=== PATIENT | female | born 1970 | race Caucasian/White ===

== ENCOUNTER 2017-04-08 19:19 | Emergency (ER) | payer BC ==
--- NOTE | ~2017-04-08 | ER ---
PATIENT'S NAME: [facility] AGE: 46 Y [address] ROOM: [place] [id number] LOCATION: [facility] ADMIT DATE: 04/08/2017 ER/Outpatient Report DISCHARGE DATE: 04/08/2017 FAMILY PHYSICIAN: Sherita Agudelo PA-C ATTENDING PHYSICIAN: Althea Cohen HISTORY OF PRESENT ILLNESS: A 46-year-old female, who presents today with 3 days of off and on left lower quadrant pain/left pelvic pain. She reports it was stronger today approximately 10 hours ago. It got stronger. She has not taken anything for pain though. She also reports that she has had her on and off periods pretty much every day since mid February. She says she feels mildly dizzy today. She used 6 pads yesterday. She thinks she used may be a pad every 3-4 hours. No nausea or vomiting. No diarrhea. No other complaints at this time. The patient reports that she has had sort of pelvic pain in the past. She has had an ultrasound in the past too, which she says showed "inflammation," but she has not followed up with them recently. Her last pelvic exam was a year ago and she says that it was otherwise pretty normal. She does not take anything for her periods. PAST MEDICAL HISTORY: Includes right foot surgery for bunion. Last menstrual period, ongoing for the last month and a half. She has no history of ovarian cyst though she states. SOCIAL HISTORY: She does not smoke, drink, or use any drugs. MEDICATIONS: None. ALLERGIES: NONE. REVIEW OF SYSTEMS: Reviewed by me and negative with the exception of those discussed in HPI. PHYSICAL EXAMINATION: VITAL SIGNS: The patient is 5 feet 3 inches, she weighs 62.1 kilos, blood pressure of 121/58, heart rate 67, respiratory rate 16, temperature is 97, saturations are 97% on room air. GENERAL: The patient is female. She is very pleasant. She is speaking in full sentences. She is nontoxic appearing. HEENT: Pupils are equal and reactive to light. She has no pale conjunctivae. HEART: Heart rate is regular rate and rhythm. PATIENT'S NAME: [facility] AGE: 46 Y [address] ROOM: [place], [place] [address] LOCATION: [facility] ADMIT DATE: 04/08/2017 ER/Outpatient Report DISCHARGE DATE: 04/08/2017 FAMILY PHYSICIAN: Sherita Agudelo PA-C ATTENDING PHYSICIAN: Althea Cohen LUNGS: Her lung sounds are clear. ABDOMEN: She is tender in the left lower quadrant, but no rebound or guarding. She has no right lower quadrant tenderness or right upper quadrant tenderness. No left upper quadrant tenderness, no suprapubic tenderness. No CVA tenderness bilaterally. PELVIC: Pelvic exam was done. Bimanual exam was done. I do not feel any masses in the adnexa. No cervical motion tenderness. Scant amount of blood in the vaginal vault, but the cervix is not open. No mass is noted. SKIN: Warm, dry, and intact. EXTREMITIES: She is nontender. She has no calf tenderness. She moves all extremities. She has no edema. EMERGENCY ROOM COURSE: We checked some lab work, which showed sodium 141, potassium 3.8, chloride 108, CO2 29, anion gap is 7.8, glucose 89, BUN 10, creatinine 0.7, bilirubin is 0.2, alkaline phosphatase 71, AST 23, ALT 38, GFR greater than 90. Urinalysis was also done and negative for leukocytes or nitrites. Negative hCG. CBC shows white count of 6, H and H is 11.9/34.8, platelets are 296. No bandemia, PTT is 31, PT is 10.7, INR is 1.02. CT of the abdomen and pelvis was done given this left lower quadrant pain and she has a left ovarian cyst that is approximately 2.6 cm with several nabothian cysts but otherwise a normal abdomen and pelvic CT. No evidence of small bowel obstruction, pneumoperitoneum, pneumatosis, diverticulitis. I discussed this with the patient. She states that the Toradol has helped. We will have her follow up with [facility], especially for this ongoing bleeding. She understands the reasons to come back to the ER sooner. We will give her some Laurel for breakthrough pain. Otherwise, I told her to take ibuprofen. IMPRESSION: Left ovarian cyst. MD CAMERON MICHAEL/modl /[id number] d: 04/09/17 0542 t: 04/10/17 0607, OUTPATIENT REPORT
[2017-04-08 20:02] LABS: BILIRUBIN URINE NEGATIVE (NEGATIVE); BLOOD URINE 250 /UL (NEGATIVE); COLOR URINE YELLOW (YELLOW); GLUCOSE URINE NEGATIVE (NEGATIVE); KETONE URINE NEGATIVE (NEGATIVE); LEUKOCYTES URINE 25 /UL (NEGATIVE); NITRITE URINE NEGATIVE (NEGATIVE); PROTEIN URINE NEGATIVE (NEGATIVE); SPEC GRAVITY URINE 1.005 (1.003-1.035); TURBIDITY URINE CLEAR (CLEAR); UROBILINOGEN URINE NORMAL (NORMAL)
[2017-04-08 20:07] LABS: BASOPHIL # 0.1 K/uL (0.0-0.2); BASOPHIL % 0.8 %; EOSINOPHIL # 0.1 K/uL (0.0-0.5); EOSINOPHIL % 1.8 %; HEMATOCRIT 34.8 % (33.0-46.0); HEMOGLOBIN 11.9 g/dL (10.0-15.0); IMMATURE GRANULOCYTE % 0.2 %; LYMPHOCYTE # 2.1 K/uL (0.8-4.0); LYMPHOCYTE % 35.6 %; MCHC 34.2 gm/dL (32.0-36.5); MCV 96.4 fl (83.0-98.0); MONOCYTE # 0.6 K/uL (0.0-1.0); MONOCYTE % 10.6 %; MPV 9.5 fl (9.4-12.4); NEUTROPHIL # (ANC) 3.1 K/uL (1.8-7.8); NRBC % 0 /100WBC (0-0.00); PLATELET COUNT 296 K/uL (150-450); RBC 3.61 M/uL (3.50-5.50); RDW-CV 12.1 % (11.9-14.6)
[2017-04-08 20:10] LABS: BACTERIA URINE NEGATIVE (NEGATIVE)
[2017-04-08 20:16] LABS: INR - (THERAPEUTIC) 1.02 (0.92-1.07); PROTIME 10.7 SECONDS (9.8-11.4); PTT 31 SECONDS (25-32)
[2017-04-08 22:00] LABS: ALBUMIN 3.6 gm/dL (3.5-5.0); ALK PHOS 71 IU/L (33-138); ALT 38 IU/L (12-78); ANION GAP 7.8 (10.0-19.0); AST 23 IU/L (10-40); BLOOD UREA NITROGEN 10 mg/dL (6-24); CHLORIDE 108 mMol/L (96-110); CO2 29 mMol/L (22-32); CREATININE 0.7 mg/dL (0.5-1.1); POTASSIUM 3.8 mMol/L (3.7-5.1); SODIUM 141 mMol/L (135-145); TOTAL BILIRUBIN 0.2 mg/dL (0.0-1.5); TOTAL PROTEIN 7.5 g/dL (6.0-8.4)
== END 2017-04-08 23:03 | disposition disaster alternative care site (69) ==
LOC: GMED 19:19
PROVIDERS: Emergency Medicine
DX: N83.202 Unspecified ovarian cyst, left side (principal); Z98.890 Other specified postprocedural states
CPT/HCPCS: J1885; Q9967